=== PATIENT | female | born 1970 | race Caucasian/White ===

== ENCOUNTER 2018-03-27 09:32 | Emergency (ER) | payer MEDICAID ==
[~2018-03-27] VITALS: Ht 162.6 cm; Wt 86.0 kg
[2018-03-27 09:41] VITALS: BP 144/84
== END 2018-03-27 10:38 | disposition home or self-care (01) ==
LOC: ED 10:15
DX: J00 Acute nasopharyngitis [common cold] (principal)
CPT/HCPCS: 71046; 99284

== ENCOUNTER 2019-05-24 08:52 | Emergency (ER) | payer MEDICAID ==
[~2019-05-24] VITALS: Ht 162.6 cm; Wt 90.0 kg
[2019-05-24 08:56] VITALS: BP 153/81
== END 2019-05-24 10:15 | disposition home or self-care (01) ==
LOC: ED 10:05
DX: K21.9 Gastro-esophageal reflux disease without esophagitis (principal); F41.1 Generalized anxiety disorder; Z76.0 Encounter for issue of repeat prescription; M19.90 Unspecified osteoarthritis, unspecified site
CPT/HCPCS: 99283

== ENCOUNTER 2019-10-23 15:26 | Emergency (ER) | payer MEDICAID ==
[~2019-10-23] VITALS: Ht 162.6 cm; Wt 88.8 kg
[~2019-10-23 15:26] MED LIST: DULO30CA2 PO; HYDR50TA13 PO; MELA1TAB6 PO; MELO15TA24 PO; OMEP-110 PO; OXCA600T10 PO; TRAZ50TA66 PO
[2019-10-23] MEDS ORDERED: KETOROLAC 30 MG/1 ML IM ONE (16:00)
[2019-10-23 16:18] LABS: ALANINE AMINOTRANSFERASE 11 U/L (12-78); ALBUMIN 3.7 g/dL (3.4-5.0); ANION GAP 7 mmol/L (5-15); CALCIUM 8.4 mg/dL (8.5-10.1); CHLORIDE 110 mmol/L (98-107); CREATININE 0.87 mg/dL (0.55-1.02)
[2019-10-23 16:23] LABS: ALKALINE PHOSPHATASE 113 U/L (45-117); BASOPHILS # (AUTO) 0.04 x10^3/uL (0-0.1); BASOPHILS % (AUTO) 1 % (0-1); BILIRUBIN,TOTAL 0.4 mg/dL (0.2-1.0); EOSINOPHILS # (AUTO) 0.13 x10^3/uL (0-0.4); EOSINOPHILS % (AUTO) 2 % (1-7); LYMPHOCYTES # (AUTO) 1.73 x10^3/uL (1-3.4); LYMPHOCYTES % (AUTO) 25 % (22-44); MD NO; MEAN CORPUSCULAR HEMOGLOBIN 29.4 pg (27.0-34.8); MEAN CORPUSCULAR HGB CONC 33.3 g/dL (32.4-35.8); MEAN CORPUSCULAR VOLUME 88.2 fL (80-100); MEAN PLATELET VOLUME 8.9 fL (7.4-10.4); MONOCYTES # (AUTO) 0.47 x10^3/uL (0.2-0.8); MONOCYTES % (AUTO) 7 % (2-9); NEUTROPHILS # (AUTO) 4.67 x10^3/uL (1.8-6.8); NEUTROPHILS % (AUTO) 66 % (42-75); PLATELET COUNT 192 x10^3/uL (130-400); RED CELL DISTRIBUTION WIDTH 14.2 % (9.6-15.2); TOTAL PROTEIN 6.9 g/dL (6.4-8.2)
--- NOTE | 2019-10-23 16:35 | NUR ---
UPON RETURN FROM ULTRASOUND STRAIGHT CATH URINE OBTAINED PT STATES SHE CANNOT VOID ON DEMAND. PT DENIES PAIN AT THIS TIME, STATING THAT IT IS INTERMITTENT, AND DECLINING TORADOL AT THIS TIME.
[2019-10-23 17:02] LABS: MICROSCOPIC AUTO
[2019-10-23 17:06] LABS: CULTURE INDICATED? YES
[2019-10-23 17:53] VITALS: BP 126/83
== END 2019-10-23 17:56 | disposition home or self-care (01) ==
LOC: ED 17:12
DX: N30.00 Acute cystitis without hematuria (principal); R93.89 Abnormal findings on diagnostic imaging of other specified body structures; R10.30 Lower abdominal pain, unspecified; K21.9 Gastro-esophageal reflux disease without esophagitis
CPT/HCPCS: 36415; 76830; 80053; 81001; 84703; 85025; 87077; 87086; 87186; 99284

== ENCOUNTER 2019-11-06 16:04 | Emergency (ER) | payer MEDICAID ==
[~2019-11-06] VITALS: Ht 157.5 cm; Wt 87.2 kg
[2019-11-06 17:12] VITALS: BP 122/85
[2019-11-06 17:56] LABS: RAPID INFLUENZA A Negative (Negative); RAPID INFLUENZA B Negative (Negative)
== END 2019-11-06 18:17 | disposition home or self-care (01) ==
LOC: ED 17:30
DX: J06.9 Acute upper respiratory infection, unspecified (principal); J02.8 Acute pharyngitis due to other specified organisms; B97.89 Other viral agents as the cause of diseases classified elsewhere; K21.9 Gastro-esophageal reflux disease without esophagitis; F17.200 Nicotine dependence, unspecified, uncomplicated
CPT/HCPCS: 71046; 87081; 87400; 87880; 99284

== ENCOUNTER 2020-04-23 15:54 | Emergency (ER) | payer MEDICAID ==
[~2020-04-23] VITALS: Ht 160 cm; Wt 83.9 kg
[~2020-04-23 15:54] MED LIST changes: -HYDR50TA13 PO; +HYDR50TA99 PO
[2020-04-23 16:00] VITALS: BP 124/86
--- NOTE | 2020-04-23 16:38 | NUR ---
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 JOVANI
--- NOTE | 2020-04-23 17:05 | NUR ---
PT CAME IN CO OF RIGHT KNEE PAIN THAT "FEELS LIKE ITS BURNING ON THE INSIDE". PT STATES SHE WAS CLEANING THIS MORNING AND IT CAME ON ALL OF A SUDDEN. PT DENIES SPILLING ANY CLEANING CHEMICALS ON LEG. PT IS RESTING IN [facility]. BLANKET PROVIDED
[2020-04-23] MEDS ORDERED: HYDROcodone/APAP 5/325 TABLET PO STA (17:59)
[2020-04-23] MEDS ORDERED: HYDROcodone/APAP 5/325 TABLET ONE (18:07)
== END 2020-04-23 18:40 | disposition home or self-care (01) ==
LOC: ED 18:23
DX: S83.411A Sprain of medial collateral ligament of right knee, initial encounter (principal); K21.9 Gastro-esophageal reflux disease without esophagitis; F17.200 Nicotine dependence, unspecified, uncomplicated; Z90.89 Acquired absence of other organs; Z98.51 Tubal ligation status; X58.XXXA Exposure to other specified factors, initial encounter; Y93.89 Activity, other specified; Y92.89 Other specified places as the place of occurrence of the external cause; Y99.8 Other external cause status
CPT/HCPCS: 99283